=== PATIENT | male | born 1980 | race Caucasian/White ===

== ENCOUNTER 2017-06-21 23:01 | Emergency (ER) | payer MEDICAID, OTHER ==
[~2017-06-21] VITALS: Ht 170.2 cm; Wt 98.3 kg
[2017-06-21 23:18] VITALS: Ht 170.2 cm; Wt 98.3 kg
[2017-06-22] MEDS ORDERED: IBUP-1542 PO (02:58)
[2017-06-22] MEDS ORDERED: NPH10OT RIGHT EAR (02:58)
[2017-06-22] MEDS ORDERED: GUAI120S26 PO (02:58)
--- NOTE | 2017-06-22 03:12 | ERD ---
ER Documentation Chief Complaint Chief Complaint Rt ear pain, cough, fever, x3days. Tylenol 4hr [employer]ULTING ARCHITECT HPI 37-year-old male presents to emergency department for complaints of right ear pain is started 3 days ago, cough that started today. Patient also has been having fever for 3 days. Patient is complaining of right ear pain with whitish discharge, throbbing pain, 6/10 scale. Patient has been having dry cough, does not cough up any phlegm or blood. Patient does not have any shortness of the breath or wheezing. Patient took Tylenol for pain with mild relief. ROS All systems reviewed and are negative except as per history of present illness. Medications Home Meds Active Scripts Rmsbeiwromi-U-Kbmwyukjqg Hb* (Guaifenesin* DM Syrup) 120 Ml Syrup, 10 ML PO Q4H Y for COUGH, #120 ML Prov:TOMASA CANSECO NP 06/22/17 Ibuprofen* (Motrin*) 600 Mg Tab, 600 MG PO Q6H Y for PAIN AND OR ELEVATED TEMP, #30 TAB Prov:TOMASA CANSECO NP 06/22/17 Neomycin/Polymyxin/Hydrocort* (Cortisporin* Otic) 10 Ml Susp, 4 DROP RIGHT EAR QID for 7 Days, EA Prov:TOMASA CANSECO NP 06/22/17 Allergies Allergies: Coded Allergies: No Known Allergy (Unverified , 06/21/17) PMhx/Soc History of Surgery: No Anesthesia Reaction: No Hx Neurological Disorder: No Hx Respiratory Disorders: No Hx Cardiac Disorders: No Hx Psychiatric Problems: No Hx Miscellaneous Medical Probl: Yes (HIGH CHOLESTEROL) Hx Alcohol Use: No Hx Substance Use: No Hx Tobacco Use: No FmHx Family History: No coronary disease, No diabetes, No other Physical Exam Vitals Vital Signs Date Time Temp Pulse Resp B/P Pulse Ox O2 Delivery O2 Flow Rate FiO2 06/21/17 23:18 98.5 84 18 137/81 99 Physical Exam GENERAL: The patient is well developed and appropriate for usual state of health, in no apparent distress. HEENT: Atraumatic. Ears: Normal tympanic membrane, no erythema or bulging. Right ear canal noted to be erythematous and swollen with whitish discharge. No left left ear canal swelling. No left ear discharge. Nose: normal nasal turbinates, no erythema or swelling. Normal nasal discharge. Throat: oropharynx clear. No tonsillar swelling or tonsillar exudates. No lymphadenopathy. CHEST: Clear to auscultation bilaterally. There are no rales, wheezes or rhonchi. HEART: Regular rate and rhythm. No murmurs, clicks, rubs or gallops. No S3 or S4. ABDOMEN: Soft, nontender and nondistended. Good bowel sounds. No rebound or guarding. No gross peritonitis. No gross organomegaly or masses. No Horn sign or McBurney point tenderness. BACK: No midline or flank tenderness. EXTREMITIES: Equal pulses bilaterally. There is no peripheral clubbing, cyanosis or edema. No focal swelling or erythema. Full range of motion. Grossly neurovascularly intact. NEURO: Alert and oriented. Cranial nerves 2-12 intact. Motor strength in all 4 extremities with 5/5 strength. Sensation grossly intact. Normal speech and gait. SKIN: There is no apparent rash or petechia. The skin is warm and dry. HEMATOLOGIC AND LYMPHATIC: There is no evidence of excessive bruising or lymphedema. No gross cervical, axillary, or inguinal lymphadenopathy. Procedures/MDM Medical Decision Making: Patient symptoms are most likely consistent with upper respiratory tract infection which viral in origin. There is low suspicion for Pneumonia at this time since patients lungs sounds are clear, patient O2 saturation is normal and patient doesnt show any respiratory distress. Radiology exams not indicated at this time. There is low suspicion for other cardiopulmonary emergencies at this time such as CHF, Pulmonary Embolism, Pneumothorax, Aortic Aneurysm or any other cardiopulmonary emergencies at this time. There is low suspicion for sepsis. Patient appears well and is hemodynamically stable. Fever is controlled with medicines. Right ear noted to have otitis externa, no symptoms of mastoiditis, otitis media, no foreign body. Corticosporin, guaifenesin DM ibuprofen Disposition: Home. Condition: Stable Prescriptions: Ibuprofen guaifenesin DM Corticosporin Instructions: Patient is advised to take medications as prescribed. Patient is advised to rest. Patient advised to increase fluid intake, do humidifier at home and if possible, do salt water gargles. Patient is advised that if symptoms are worse, shortness of breath, uncontrolled fever, stridor, vomiting, worst signs and symptoms to return to emergency department immediately. Otherwise, patient is advised to follow up with primary doctor in 5-7 days. Disclaimer: Inadvertent spelling and grammatical errors are likely due to EHR/ dictation software use and do not reflect on the overall quality of patient care. Also, please note that the electronic time recorded on this note does not necessarily reflect the actual time of the patient encounter. Departure Diagnosis: Primary Impression: Right otitis externa Otitis externa type: unspecified type Chronicity: acute Qualified Code: H60.501 - Acute otitis externa of right ear, unspecified type Additional Impression: URI (upper respiratory infection) URI type: unspecified viral URI Qualified Code: J06.9 - Viral upper respiratory tract infection Condition: Stable Patient Instructions: Uri, Viral, No Abx (Adult), External Ear Infection (Adult ) TOMASA CANSECO NP Jun 22, 2017 03:12
== END 2017-06-22 03:14 | disposition home or self-care (01) ==
LOC: FTE 23:01
DX: H60.501 Unspecified acute noninfective otitis externa, right ear (principal); J06.9 Acute upper respiratory infection, unspecified
CPT/HCPCS: 99283

== ENCOUNTER 2017-08-31 18:51 | Emergency (ER) | END 2017-09-01 00:34 | disposition home or self-care (01) ==

== ENCOUNTER 2018-04-08 21:17 | Emergency (ER) | END 2018-04-08 23:15 | disposition home or self-care (01) ==